=== PATIENT | male | born 1960 | race Caucasian/White ===

== ENCOUNTER 2020-05-03 10:22 | Outpatient (CLI) | payer BC ==
--- NOTE | 2020-05-03 11:22 | RAD ---
LEFT KNEE 4 VIEWS: Date: 05/03/2020 HISTORY: Left knee pain. FINDINGS: Degenerative changes are seen manifested by osteophyte formation and joint space narrowing, most prom inent in the medial tibiofemoral compartment. No fracture, dislocation, or bony destruction is identi fied. IMPRESSION: Left knee osteoarthritis. POS: AH
== END 2020-05-03 10:23 | disposition home or self-care (01) ==
LOC: BICRAD 10:22
PROVIDERS: ATTEND Specialist
DX: M25.562 Pain in left knee (principal); M17.12 Unilateral primary osteoarthritis, left knee